=== PATIENT | male | born 1950 | race Caucasian/White ===

== ENCOUNTER 2020-03-14 16:50 | Emergency (ER) | payer MEDICARE, OTHER ==
[~2020-03-14] VITALS: Ht 180.3 cm; Wt 131.5 kg
[2020-03-14 21:03] LABS: Basophils # (auto) 0.1 10 ^3/uL (0-0.2); Basophils % (auto) 0.6 % (0.0-2.0); Eosinophils # (auto) 0 10 ^3/uL (0-0.8); Eosinophils % (auto) 0.1 % (0.0-7.0); Hematocrit 31.5 % (41.0-53.0); Hemoglobin 10.3 g/dL (13.5-17.5); Lymphocytes # (auto) 1.9 10 ^3/uL (0.4-5.4); Lymphocytes % (auto) 16.7 % (10.0-50.0); Mean Corpuscular Hemoglobin 31.8 pg (28.0-32.0); Mean Corpuscular Hgb Conc. 32.6 g/dL (32.0-36.0); Mean Corpuscular Volume 97.7 fL (80.0-100.0); Monocytes # (auto) 0.9 10 ^3/uL (0-1.3); Neutrophils # (auto) 8.4 10 ^3/uL (1.6-8.6); Neutrophils % (auto) 74.6 % (37.0-80.0); Platelet Count (auto) 312 10^3/uL (140-450); Red Blood Cells 3.23 10^6/uL (4.5-5.90); Red Cell Distribution Width 12.7 % (11.8-14.3); White Blood Cell 11.3 10^3/uL (4.4-10.8)
[2020-03-14 21:19] LABS: Alanine Aminotransferase 26 U/L (16-61); Albumin 3.1 g/dL (3.4-5.0); Anion Gap 10 (5-15); Aspartate Aminotransferase 24 U/L (15-37); BUN/Creatinine Ratio 29.4; Blood Urea Nitrogen 25 mg/dL (7-18); Calcium 8.8 mg/dL (8.5-10.1); Carbon Dioxide 24 mmol/L (21-32); Chloride 104 mmol/L (98-107); GFR African American 115 mL/min; GFR Non-African American 95 mL/min; Glucose 101 mg/dL (74-106); Potassium 3.6 mmol/L (3.5-5.1); Sodium 138 mmol/L (136-145)
[2020-03-14 21:24] LABS: INR 1.11 (0.9-1.15); Partial Thromboplastin Time 28.1 sec (23.0-31.2)
[2020-03-14 21:25] LABS: Alkaline Phosphatase 113 U/L (45-117); Bilirubin, Total 0.5 mg/dL (0.2-1.0); Total Protein 7.6 g/dL (6.4-8.2)
[2020-03-15] MEDS ORDERED: HYDROcodone-ACET 5/325MG TAB PO ONE
[2020-03-15] MEDS ORDERED: IOHEXOL 350 MG/ML 100ML IJ ONE (09:55)
[2020-03-15] MEDS ORDERED: ONDANSETRON HCL 4 MG/2 ML VIAL ONE (11:48)
[2020-03-15] MEDS ORDERED: MORPHINE SULFATE 4 MG/ML SYR/VIAL ONE (11:48)
[2020-03-15] MEDS ORDERED: MORPHINE SULFATE 4 MG/ML SYR/VIAL IV ONE (12:00)
[2020-03-15] MEDS ORDERED: ONDANSETRON HCL 4 MG/2 ML VIAL IV ONE (12:00)
[2020-03-15 15:52] VITALS: BP 131/53
--- NOTE | 2020-03-15 16:08 | NUR ---
Assessment Patient is a 70-year-old male whi is alert and oriented. Patient reside home with . Per patient his is at [facility] and has been home alone ever since his has been placed. Per patient he broke his shoulder on 2019 and ever since he has been difficulties caring for him self. Patient is interested on home health service and caregiver. Faxed clinical information to [facility] health is willing to service patient and Josette with [facility] will be providing patient with a caregiver . Patient verbalize understanding and agrees discharge plan. Patient will need a Taxi Voucher and [employer] has been informed. Addendum: 03/15/20 at 1616 by MARBIN AGOSTO Amended: Links added.
== END 2020-03-15 20:52 | disposition home or self-care (01) ==
LOC: EDBD 16:50 → ER 16:50
DX: R06.02 Shortness of breath (principal); M25.561 Pain in right knee; M79.672 Pain in left foot; Z20.828 Contact with and (suspected) exposure to other viral communicable diseases
CPT/HCPCS: 36415; 71045; 71275; 73562; 73630; 80053; 83605; 83880; 84484; 85025; 85610; 85730; 87426; 93970; 96374; 96375; 99285; C9803; J2270; J2405; Q9967; U0003